=== PATIENT | female | born 1940 | race Caucasian/White ===

== ENCOUNTER 2017-03-03 20:52 | Emergency (ER) | payer MEDICARE, BC ==
--- NOTE | 2017-03-03 21:42 | EDM.PDOC ---
ED HPI GENERAL MEDICAL PROBLEM - General Chief Complaint: Abdominal Pain Stated Complaint: [facility] Time Seen by Provider: 03/03/17 21:01 Source of Information: Reports: Patient History Limitations: Reports: No Limitations - History of Present Illness INITIAL COMMENTS - FREE TEXT/NARRATIVE: This is a 77-year-old female. On Monday she was in [place] and had an upper endoscopy and 2 polyps were removed from her stomach by Dr. Hagan. He states she was feeling fine when she went home and she was doing well with good energy. Today however this afternoon she started feeling weak with decreased energy. She went to the bathroom this evening and while she was there she passed out and could not get back up. Today she had 2 black-looking stools and stool in the bathroom when she passed out had maroon blood. She also vomited one time in the bathroom after she passed out and there was a small flecks of some dark blood in the vomitus. She says she just has no energy and no strength. She denies any particular abdominal pain and no other acute symptoms. No fever no chills no cough no congestion. Treatments MANAGER MAIL: Reports: IV/IO, Other Medication(s), See EMS Report Other Treatments MANAGER MAIL: NS - Related Data Allergies Allergy/AdvReac Type Severity Reaction Status Date / Time Dairy Products Allergy Nausea and Verified 11/12/15 13:18 Vomiting lisinopril Allergy Cannot Verified 03/03/17 20:59 Remember Penicillins Allergy Hives Verified 11/12/15 13:18 Home Meds: Home Meds Ca Carbonate/Vitamin D3/Vit K [Calcium + D Soft Chewable Tab] 1 each PO DAILY [History] Folic Acid 1 mg PO DAILY 01/20/15 [History] Hydroxychloroquine [Plaquenil] 200 mg PO DAILY 01/20/15 [History] LORazepam 0.5 mg PO BID PRN 01/20/15 [History] Losartan [Cozaar] 25 mg PO DAILY 01/20/15 [History] Methotrexate 2.5 mg PO WEEKLY 01/20/15 [History] Metoprolol Succinate [Toprol XL] 25 mg PO BEDTIME 01/20/15 [History] Multivitamin [Multi-Vitamin Daily] 500 mg PO DAILYBH 01/20/15 [History] Omeprazole 40 mg PO DAILY 01/20/15 [History] Vitamin B Complex [B Complex] 1 each PO DAILY 01/20/15 [History] Apixaban [Eliquis] 5 mg PO BID 03/04/17 [History] Aspirin [Ecotrin] 81 mg PO DAILY 03/04/17 [History] Bismuth Subsalicylate [Pepto-Bismol] 15 ml PO DAILY PRN 03/04/17 [History] Lactobacillus Acidophilus [Probiotic] 1 cap PO DAILY 03/04/17 [History] Magnesiumzinc. 1 tab PO ASDIRECTED 03/04/17 [History] Nitroglycerin [Nitrostat] 0.4 mg SL ASDIRECTED PRN 03/04/17 [History] Simvastatin [Zocor] 20 mg PO BEDTIME 03/04/17 [History] Ubidecarenone [Coq-10] 200 mg PO DAILY 03/04/17 [History] Past Medical History HEENT History: Reports: Cataract, Impaired Vision Other HEENT History: wears glasses Cardiovascular History: Reports: Afib, Hypertension Respiratory History: Reports: Sleep Apnea Gastrointestinal History: Reports: Diverticulosis, GERD, [employer] History: Reports: Other OB/BYN History: OOVECTOMY Musculoskeletal History: Reports: RA Psychiatric History: Reports: Anxiety Oncologic (Cancer) History: Reports: Breast Other Dermatologic History: R MASECTOMY - Infectious Disease History Infectious Disease History: Reports: Chicken Pox - Past Surgical History HEENT Surgical History: Reports: Other (See Below) Cardiovascular Surgical History: Reports: Cardiac Ablation GI Surgical History: Reports: Appendectomy, Colonoscopy, EGD Female Surgical History: Reports: Hysterectomy Oncologic Surgical History: Reports: Mastectomy Social & Family History - Family History Family Medical History: Noncontributory - Tobacco Use Smoking Status *Q: Never Smoker Second Hand Smoke Exposure: No - Caffeine Use Caffeine Use: Reports: Tea - Recreational Drug Use Recreational Drug Use: No - Living Situation & Occupation Living situation: Reports: , with Spouse Occupation: Retired ED ROS GENERAL - Review of Systems Review Of Systems: See Below Constitutional: Reports: Weakness, Fatigue. Denies: Fever, Chills HEENT: Reports: No Symptoms Respiratory: Reports: No Symptoms Cardiovascular: Reports: No Symptoms Endocrine: Reports: No Symptoms GI/Abdominal: Reports: No Symptoms : Reports: No Symptoms Musculoskeletal: Reports: No Symptoms Skin: Reports: Change in Color Neurological: Reports: Syncope Psychiatric: Reports: No Symptoms Hematologic/Lymphatic: Reports: Anemia Immunologic: Reports: No Symptoms ED EXAM, GI/ABD - Physical Exam Exam: See Below Exam Limited By: No Limitations General Appearance: Alert, WD/WN, No Apparent Distress Eyes: Bilateral: Normal Appearance Ears: Normal External Exam Nose: Normal Inspection Throat/Mouth: Other (Patient is pale, her lip appears to be about the same shade as the skin of her chin, there is no obvious blood in the oropharynx area) Head: Atraumatic, Normocephalic Neck: Supple, Non-Tender, Full Range of Motion Respiratory/Chest: No Respiratory Distress, Lungs Clear, Normal Breath Sounds Cardiovascular: Regular Rate, Rhythm, No Murmur GI/Abdominal Exam: Soft, Non-Tender, Other (Palpation of the upper abdomen reveals no tenderness no lower abdominal tenderness or quadrant tenderness on palpation, bowel sounds are quiet) Rectal (Female) Exam: Other (stool is guaiac positive) Extremities: Normal Inspection, Normal Range of Motion, Non-Tender Neurological: Alert, Oriented Psychiatric: Normal Affect, Normal Mood Skin Exam: Warm, Dry. No: Diaphoretic Course - Vital Signs Last Recorded V/S: Last Vital Signs Temp 98.6 F 03/04/17 02:09 Pulse 79 03/04/17 02:09 Resp 17 03/04/17 02:09 BP 112/54 L 03/04/17 02:09 Pulse Ox 100 03/04/17 02:09 - Orders/Labs/Meds Orders: Active Orders 24 hr Category Date Time Status PATIENT RETYPE [BBK] Stat Lab 03/03/17 21:48 Results RED BLOOD CELLS APH1 LR [BBK] Stat Lab 03/03/17 21:48 Results RED BLOOD CELLS LP [BBK] Stat Lab 03/03/17 21:48 Results TYPE AND SCREEN [BBK] Stat Lab 03/03/17 21:48 Results Sodium Chloride 0.9% [Normal Saline] 1,000 ml Med 03/03/17 23:10 Active IV ONETIME Transfuse PRBC [Transfuse Red Blood Cells] [COMM] Stat Oth 03/03/17 22:52 Ordered Medication Orders Sodium Chloride (Normal Saline) 1,000 mls @ 75 mls/hr IV ONETIME ONE Stop: 03/04/17 12:29 Last Admin: 03/03/17 23:42 Dose: 75 mls/hr Labs: Laboratory Tests 03/03/17 03/03/17 03/03/17 Range/Units 21:48 21:48 21:48 WBC 9.88 (3.98-10.04) K/mm3 RBC 2.49 L (3.98-5.22) M/mm3 Hgb 7.7 L (11.2-15.7) gm/L Hct 23.2 L (34.1-44.9) % MCV 93.2 (79.4-94.8) fl MCH 30.9 (25.6-32.2) pg MCHC 33.2 (32.2-35.5) g/dl RDW Std Deviation 48.5 H (36.4-46.3) fL Plt Count 213 (182-369) K/mm3 MPV 9.8 (9.4-12.3) fl Neut % (Auto) 78.6 H (34.0-71.1) % Lymph % (Auto) 7.6 L (19.3-51.7) % [place] % (Auto) 13.0 H (4.7-12.5) % Eos % (Auto) 0.4 L (0.7-5.8) Baso % (Auto) 0.2 (0.1-1.2) % Neut # (Auto) 7.77 H (1.56-6.13) K/mm3 Lymph # (Auto) 0.75 L (1.18-3.74) K/mm3 [place] # (Auto) 1.28 H (0.24-0.36) K/mm3 Eos # (Auto) 0.04 (0.04-0.36) K/mm3 Baso # (Auto) 0.02 (0.01-0.08) K/mm3 Manual Slide Review Abnormal smear PT 12.2 (8.0-13.0) SECONDS INR 1.11 Sodium 139 (136-145) mEq/L Potassium 4.9 (3.5-5.1) mEq/L Chloride 109 H (98-107) mEq/L Carbon Dioxide 23 (21-32) mEq/L Anion Gap 11.9 (5-15) BUN 48 H (7-18) mg/dL Creatinine 1.4 H (0.55-1.02) mg/dL Est Cr Clr Drug Dosing TNP Estimated GFR (MDRD) 37 (>60) mL/min BUN/Creatinine Ratio 34.3 H (14-18) Glucose 104 (83-115) mg/dL Calcium 9.1 (8.5-10.1) mg/dL Total Bilirubin 0.3 (0.2-1.0) mg/dL AST 20 (15-37) U/L ALT 21 (14-59) U/L Alkaline Phosphatase 33 L (46-116) U/L Total Protein 5.4 L (6.4-8.2) g/dl Albumin 2.6 L (3.4-5.0) g/dl Globulin 2.8 gm/dL Albumin/Globulin Ratio 0.9 L (1-2) Blood Type Gel Antibody Screen Crossmatch 03/03/17 Range/Units 21:48 WBC (3.98-10.04) K/mm3 RBC (3.98-5.22) M/mm3 Hgb (11.2-15.7) gm/L Hct (34.1-44.9) % MCV (79.4-94.8) fl MCH (25.6-32.2) pg MCHC (32.2-35.5) g/dl RDW Std Deviation (36.4-46.3) fL Plt Count (182-369) K/mm3 MPV (9.4-12.3) fl Neut % (Auto) (34.0-71.1) % Lymph % (Auto) (19.3-51.7) % [place] % (Auto) (4.7-12.5) % Eos % (Auto) (0.7-5.8) Baso % (Auto) (0.1-1.2) % Neut # (Auto) (1.56-6.13) K/mm3 Lymph # (Auto) (1.18-3.74) K/mm3 [place] # (Auto) (0.24-0.36) K/mm3 Eos # (Auto) (0.04-0.36) K/mm3 Baso # (Auto) (0.01-0.08) K/mm3 Manual Slide Review PT (8.0-13.0) SECONDS INR Sodium (136-145) mEq/L Potassium (3.5-5.1) mEq/L Chloride (98-107) mEq/L Carbon Dioxide (21-32) mEq/L Anion Gap (5-15) BUN (7-18) mg/dL Creatinine (0.55-1.02) mg/dL Est Cr Clr Drug Dosing Estimated GFR (MDRD) (>60) mL/min BUN/Creatinine Ratio (14-18) Glucose (83-115) mg/dL Calcium (8.5-10.1) mg/dL Total Bilirubin (0.2-1.0) mg/dL AST (15-37) U/L ALT (14-59) U/L Alkaline Phosphatase (46-116) U/L Total Protein (6.4-8.2) g/dl Albumin (3.4-5.0) g/dl Globulin gm/dL Albumin/Globulin Ratio (1-2) Blood Type A POSITIVE Gel Antibody Screen Negative Crossmatch See Detail Meds: Medications Generic Name Dose Route Start Last Admin Trade Name Freq PRN Reason Stop Dose Admin Sodium Chloride 1,000 mls @ 75 mls/hr 03/03/17 23:10 03/03/17 23:42 Normal Saline IV 03/04/17 12:29 75 mls/hr ONETIME ONE Administration Discontinued Medications Generic Name Dose Route Start Last Admin Trade Name Freq PRN Reason Stop Dose Admin Sodium Chloride 1,000 mls @ 500 mls/hr 03/03/17 21:50 03/03/17 21:57 Normal Saline IV 03/03/17 23:49 500 mls/hr ONETIME ONE Administration - Re-Assessments/Exams Free Text/Narrative Re-Assessment/Exam: 03/04/17 01:32 I spoke to the patient regarding her lab results. She has no upper GI bleed with acute anemia due to blood loss. I also spoke to at [facility] and he agrees to accept the patient in transport for further evaluation and treatment. However with a hemoglobin of 7.7 and still a systolic in the 90s we will transfuse her 1 unit of blood and then set up another unit to be given on the way down to [place]. She has been stable since she has been here with a most recent blood pressure of 106/54. Once the first unit of blood is transfused we will call an ambulance to transfer her down to [place]. 03/04/17 03:12 We have attempted to locate an [facility] ambulance to transport the patient to [place], we have called [facility] and [facility] and no one is available. Since her condition is tenuous and if she bleeds again there is no one here at this hospital that can scope her and stop the bleeding I have called the [place] flight crew to come and pick her up since I have no other alternative and I do not feel comfortable keeping her here due to the inability to treat her if she bleeds again. Departure - Departure Time of Disposition: 03:13 Disposition: DC/Tfer to [facility] 02 Condition: Fair Clinical Impression: Upper GI hemorrhage, Acute blood loss anemia - Discharge Information Referrals: Coretta Sharma MD [Primary Care Provider] - Forms: ED Department Discharge Additional Instructions: Dr. Mukherjee agrees to accept the patient in transport to [facility] for further evaluation and treatment. The patient did receive 1 unit of blood prior to transfer and the second unit was actually hung and is approximately jail done now since we are having a hard time finding a method to get her down to [place]. ED Communication - ED Communication Date/Time Date: 03/03/17 Time Called: 23:30 - Discussed Case With (1) Discussed Case With (1): Admitting Provider Person/s Notified (1): Dr. Mukherjee (Accepts the patient to [facility]) - My Orders Last 24 Hours: My Active Orders 03/03/17 21:48 PATIENT RETYPE [BBK] Stat RED BLOOD CELLS APH1 LR [BBK] Stat RED BLOOD CELLS LP [BBK] Stat TYPE AND SCREEN [BBK] Stat 03/03/17 22:52 Transfuse PRBC [Transfuse Red Blood Cells] [COMM] Stat 03/03/17 23:10 Sodium Chloride 0.9% [Normal Saline] 1,000 ml IV ONETIME - Assessment/Plan Last 24 Hours: My Active Orders 03/03/17 21:48 PATIENT RETYPE [BBK] Stat RED BLOOD CELLS APH1 LR [BBK] Stat RED BLOOD CELLS LP [BBK] Stat TYPE AND SCREEN [BBK] Stat 03/03/17 22:52 Transfuse PRBC [Transfuse Red Blood Cells] [COMM] Stat 03/03/17 23:10 Sodium Chloride 0.9% [Normal Saline] 1,000 ml IV ONETIME
[2017-03-03] MEDS ORDERED: Sodium Chloride 0.9% 1,000 ML IV ONE ×2 (21:50→23:10)
[2017-03-04 05:55] VITALS: BP 103/63
== END 2017-03-04 05:55 ==
LOC: JD.ED 20:52
DX: K92.2 Gastrointestinal hemorrhage, unspecified (principal); D62 Acute posthemorrhagic anemia; I10 Essential (primary) hypertension; I48.91 Unspecified atrial fibrillation; G47.30 Sleep apnea, unspecified; K21.9 Gastro-esophageal reflux disease without esophagitis; F41.9 Anxiety disorder, unspecified; Z85.3 Personal history of malignant neoplasm of breast; Z90.710 Acquired absence of both cervix and uterus; Z98.890 Other specified postprocedural states; Z90.11 Acquired absence of right breast and nipple; Z79.82 Long term (current) use of aspirin; Z79.899 Other long term (current) drug therapy; Z88.0 Allergy status to penicillin; Z88.8 Allergy status to other drugs, medicaments and biological substances; Z91.011 Allergy to milk products
CPT/HCPCS: 36415; 36430; 80053; 85025; 85610; 86850; 86900; 86901; 86922; 96360; 96361; 99285; J7040; P9016

== ENCOUNTER 2017-03-07 10:11 | Emergency (ER) | payer MEDICARE, BC ==
[2017-03-07] MEDS ORDERED: Diltiazem 25 MG/5 ML SDV IVPUSH ONE (10:31)
--- NOTE | 2017-03-07 10:36 | EDM.PDOC ---
ED HPI GENERAL MEDICAL PROBLEM - General Chief Complaint: Cardiovascular Problem Stated Complaint: RAPID HEART RATE Time Seen by Provider: 03/07/17 10:24 Source of Information: Reports: Patient, Family (spouse) History Limitations: Reports: No Limitations - History of Present Illness INITIAL COMMENTS - FREE TEXT/NARRATIVE: 77-year-old female presents to the ED with acute onset of palpitations about 0700 hrs. this morning. She has a history of intermittent atrial fibrillation. She is on Eliquis and metoprolol 25 mg extended release daily. She did take her medications this morning. She states her heart has not acted out for the better part of a year. She's been ill lately with anemia occurring after lower GI bleed after polypectomy during colonoscopy. She required 2 units of packed cells and remains anemic. At present she is tolerating the tachyarrhythmia at 1 55/m well with no central chest pain. Slight dizziness when she was standing and walking. No shortness of breath. Onset: Today Onset Date: 03/07/17 Onset Time: 07:00 Duration: Hour(s):, Constant Location: Reports: Chest (Aware of palpitations in her chest.) Quality: Reports: Other. Denies: Pressure Severity: Moderate (Dizziness) Improves with: Reports: None (Valsalva maneuver did not work.) Worsens with: Reports: Movement Associated Symptoms: Reports: Malaise (Has been feeling quite weak and fatigued since GI blood loss.), Weakness (Generalized). 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 (see below) (Did take her normal medications this morning.) - Related Data Allergies Allergy/AdvReac Type Severity Reaction Status Date / Time Dairy Products Allergy Nausea and Verified 03/07/17 10:28 Vomiting lisinopril Allergy Cannot Verified 03/07/17 10:28 Remember Penicillins Allergy Hives Verified 03/07/17 10:28 Home Meds: Home Meds Ca Carbonate/Vitamin D3/Vit K [Calcium + D Soft Chewable Tab] 1 each PO DAILY [History] Folic Acid 1 mg PO DAILY 01/20/15 [History] Hydroxychloroquine [Plaquenil] 200 mg PO DAILY 01/20/15 [History] LORazepam 0.5 mg PO BID PRN 01/20/15 [History] Losartan [Cozaar] 25 mg PO DAILY 01/20/15 [History] Methotrexate 2.5 mg PO WEEKLY 01/20/15 [History] Metoprolol Succinate [Toprol XL] 25 mg PO BEDTIME 01/20/15 [History] Multivitamin [Multi-Vitamin Daily] 500 mg PO DAILYBH 01/20/15 [History] Omeprazole 40 mg PO DAILY 01/20/15 [History] Vitamin B Complex [B Complex] 1 each PO DAILY 01/20/15 [History] Apixaban [Eliquis] 5 mg PO BID 03/04/17 [History] Aspirin [Ecotrin] 81 mg PO DAILY 03/04/17 [History] Bismuth Subsalicylate [Pepto-Bismol] 15 ml PO DAILY PRN 03/04/17 [History] Lactobacillus Acidophilus [Probiotic] 1 cap PO DAILY 03/04/17 [History] Magnesiumzinc. 1 tab PO ASDIRECTED 03/04/17 [History] Nitroglycerin [Nitrostat] 0.4 mg SL ASDIRECTED PRN 03/04/17 [History] Simvastatin [Zocor] 20 mg PO BEDTIME 03/04/17 [History] Ubidecarenone [Coq-10] 200 mg PO DAILY 03/04/17 [History] Past Medical History HEENT History: Reports: Cataract, Impaired Vision Other HEENT History: wears glasses Cardiovascular History: Reports: Afib (Intermittent atrial fib and is on Eliquis for this.), Hypertension Respiratory History: Reports: Sleep Apnea Gastrointestinal History: Reports: Diverticulosis, GERD, PUD, Other (See Below) (Recent colonoscopy with 2 polyps resected. 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 Has been doing so since 1998 with good control of her disease process) Psychiatric History: Reports: Anxiety Oncologic (Cancer) History: Reports: Breast Other Dermatologic History: R MASECTOMY - Infectious Disease History Infectious Disease History: Reports: Chicken Pox - Past Surgical History HEENT Surgical History: Reports: Other (See Below) Cardiovascular Surgical History: Reports: Cardiac Ablation GI Surgical History: Reports: Appendectomy, Colonoscopy, EGD Female Surgical History: Reports: Hysterectomy Oncologic Surgical History: Reports: Mastectomy Social & Family History - Family History Family Medical History: Noncontributory - Tobacco Use Smoking Status *Q: Never Smoker Second Hand Smoke Exposure: No - Caffeine Use Caffeine Use: Reports: Tea - Recreational Drug Use Recreational Drug Use: No - Living Situation & Occupation Living situation: Reports: , with Spouse Occupation: Retired ED ROS GENERAL - Review of Systems Review Of Systems: See Below Constitutional: Reports: Malaise, Weakness, Fatigue, Decreased Appetite. Denies : Fever, Chills, Weight Loss (Since current illness with blood loss.) HEENT: Reports: No Symptoms Respiratory: Denies: Shortness of Breath, Wheezing, Pleuritic Chest Pain, Cough , Sputum, Hemoptysis Cardiovascular: Reports: Blood Pressure Problem, Dyspnea on Exertion (The last week.), Lightheadedness (Mild this morning). Denies: Chest Pain, Claudication, Edema, Orthopnea (Usually runs a bit high) Endocrine: Reports: Fatigue GI/Abdominal: Reports: Other (Recently had 2 polyps resected by colonoscopy with a postoperative GI bleed 2 days later requiring cauterization of the area. It did require 2 units of packed cells. Hemoglobin was down to 7). Denies: Abdominal Pain : Reports: Incontinence (Mild stress and urge component.) Musculoskeletal: Reports: Joint Pain (Knees hips and low back at times) Skin: Reports: Pallor (Remains anemic.) Neurological: Reports: Dizziness (Little lightheaded dizzy this morning.) Psychiatric: Reports: Anxiety ED EXAM, GENERAL - Physical Exam Exam: See Below Exam Limited By: No Limitations General Appearance: Alert, WD/WN, Other (Does appear quite pallid. She is not that anxious in regards to the palpitations.) Eye Exam: Right Eye: Other (Both blood for margins are showing signs of anemia. Hemoglobin) Throat/Mouth: Normal Inspection, Normal Lips, Normal Oropharynx Head: Atraumatic, Normocephalic Neck: Normal Inspection, Supple, Non-Tender, Full Range of Motion. No: Lymphadenopathy (L), Lymphadenopathy (R) Respiratory/Chest: No Respiratory Distress, Lungs Clear, Normal Breath Sounds, No Accessory Muscle Use Cardiovascular: No Gallop, No Murmur, No Rub, Tachycardia (Regular tachycardia no complex on the monitor at 1 56/m.). No: Normal Peripheral Pulses, Regular Rate, Rhythm, No Edema Peripheral Pulses: 1+: Posterior Tibial (L) (Pulses are weak to her feet.), Posterior Tibial (R), Dorsalis Pedis (L), Dorsalis Pedis (R) GI/Abdominal: Normal Bowel Sounds, Soft, Non-Tender, No Organomegaly Back Exam: Normal Inspection, Full Range of Motion. No: CVA Tenderness (L), CVA Tenderness (R) Extremities: Normal Inspection, Pedal Edema, Other (Is showing evidence of rheumatoid arthritis affecting her MCP joints in her hands. No active synovitis identified.) Neurological: Alert, Oriented (+1 pitting edema both lower extremities), CN II- XII Intact, Normal Cognition Psychiatric: Normal Affect, Normal Mood Skin Exam: Warm, Dry, Intact, Normal Color, No Rash EKG INTERPRETATION EKG Date: 03/07/17 Time: 10:20 Rhythm: Other (Narrow complex tachycardia SVT. Simply junctional possibly atrial fibrillation) Rate (Beats/Min): 155 [place]: LAD-Left [place] Deviation (Left axis deviation of -40.) P-Wave: Absent QRS: RBBB (Incomplete right bundle branch block pattern) ST-T: Depressed (Depressed in leads 1 and aVL) QT: Normal Course - Vital Signs Last Recorded V/S: Last Vital Signs Temp 36.6 C 03/07/17 10:11 Pulse 156 H 03/07/17 10:11 Resp 20 03/07/17 10:11 BP 117/66 03/07/17 10:11 Pulse Ox 100 03/07/17 10:11 - Orders/Labs/Meds Orders: Active Orders 24 hr Category Date Time Status EKG Documentation Completion [RC] STAT Care 03/07/17 10:33 Active EKG Documentation Completion [RC] STAT Care 03/07/17 11:20 Active TSH [CHEM] Stat Lab 03/07/17 12:12 Ordered Sodium Chloride 0.9% [Normal Saline] 1,000 ml Med 03/07/17 10:45 Active IV ASDIRECTED Medication Orders Sodium Chloride (Normal Saline) 1,000 mls @ 100 mls/hr IV ASDIRECTED RACH Last Admin: 03/07/17 10:49 Dose: 100 mls/hr Labs: Laboratory Tests 03/07/17 03/07/17 03/07/17 Range/Units 10:25 10:25 10:25 WBC 7.21 (3.98-10.04) K/mm3 RBC 2.95 L (3.98-5.22) M/mm3 Hgb 8.9 L (11.2-15.7) gm/L Hct 27.0 L (34.1-44.9) % MCV 91.5 (79.4-94.8) fl MCH 30.2 (25.6-32.2) pg MCHC 33.0 (32.2-35.5) g/dl RDW Std Deviation 49.4 H (36.4-46.3) fL Plt Count 234 (182-369) K/mm3 MPV 10.9 (9.4-12.3) fl Neutrophils % (Manual) 74 H (40-60) % Band Neutrophils % 2 (0-10) % Lymphocytes % (Manual) 20 (20-40) % Atypical Lymphs % 0 % Monocytes % (Manual) 3 (2-10) % Eosinophils % (Manual) 1 (0.7-5.8) % Basophils % (Manual) 0 L (0.1-1.2) Platelet Estimate Adequate Polychromasia 1+ slight Poikilocytosis 1+ slight Anisocytosis 1+ slight Ovalocytes Few RBC Morph Comment Not Reportable PT 11.3 (8.0-13.0) SECONDS INR 1.03 Sodium 141 (136-145) mEq/L Potassium 3.9 (3.5-5.1) mEq/L Chloride 109 H (98-107) mEq/L Carbon Dioxide 24 (21-32) mEq/L Anion Gap 11.9 (5-15) BUN 18 (7-18) mg/dL Creatinine 1.3 H (0.55-1.02) mg/dL Est Cr Clr Drug Dosing 35.80 mL/min Estimated GFR (MDRD) 40 (>60) mL/min BUN/Creatinine Ratio 13.8 L (14-18) Glucose 130 H (83-115) mg/dL Calcium 10.2 H (8.5-10.1) mg/dL Magnesium 1.8 (1.8-2.4) mg/dl Total Bilirubin 0.4 (0.2-1.0) mg/dL AST 29 (15-37) U/L ALT 26 (14-59) U/L Alkaline Phosphatase 40 L (46-116) U/L CK-MB (CK-2) 2.6 (0-3.6) ng/ml Troponin I 0.058 H* (0.00-0.056) ng/mL C-Reactive Protein 1.7 H* (<1.0) mg/dL NT-Pro-B Natriuret Pep 909 H (0-450) pg/mL Total Protein 6.5 (6.4-8.2) g/dl Albumin 2.9 L (3.4-5.0) g/dl Globulin 3.6 gm/dL Albumin/Globulin Ratio 0.8 L (1-2) Meds: Medications Generic Name Dose Route Start Last Admin Trade Name Freq PRN Reason Stop Dose Admin Sodium Chloride 1,000 mls @ 100 mls/hr 03/07/17 10:45 03/07/17 10:49 Normal Saline IV 100 mls/hr ASDIRECTED RACH Administration Discontinued Medications Generic Name Dose Route Start Last Admin Trade Name Freq PRN Reason Stop Dose Admin Diltiazem HCl 10 mg 03/07/17 10:31 03/07/17 10:48 Diltiazem IVPUSH 03/07/17 10:32 10 mg ONETIME ONE Administration Diltiazem HCl 125 mg/ Sodium 125 mls @ 5 mls/hr 03/07/17 10:45 Chloride IV TITRATE RACH 5 MG/HR - Radiology Interpretation Free Text/Narrative:: 77-year-old female presents to the ED with recognized on sudden onset of palpitations about 0700 hrs. this morning while she was sitting down to 8 breakfast. She has a history of intermittent atrial fibrillation. For this reason she is on metoprolol and Eliquis. Is been not acting up for a lengthy period of time. She's been recently ill with development of significant anemia after lower GI blood loss following polypectomy during colonoscopy. She did receive 2 units of packed cells because of hemoglobin of 7. She of course remains anemic. She is fatigued and suffering Polina's because of this. ECG at this time as a narrow complex tachycardia with incomplete right bundle branch block pattern at 1 55/m. She is tolerating this well with no chest pain she slight dizziness and no shortness of breath. Plan try to sign 10 mg IV bolus then 5 mg drip per hour. Routine labs to include serum magnesium level. No baseline blood pressure was 117 systolic. - Re-Assessments/Exams Free Text/Narrative Re-Assessment/Exam: 03/07/17 11:10 heart rate responded well to the 10 mg IV bolus of Cardizem. Currently heart rate is 89 and is converted her back to sinus rhythm. Blood pressures a little low at 90/52. The drip will therefore be canceled. 03/07/17 12:12 is remained in sinus rhythm in the 80s. Blood pressure remained a bit on the low side it is currently 97/57. She remains pallid. Labs revealed a hemoglobin of 8.9 total white count is 7.21 with 74% neutrophils and 2% band cells. Hematocrit was 27.0 platelets normal 2 and 34,000. Glucose 1:30. Troponin was 0.058 up her limits of normal CK-MB fraction 2.6. BNP is elevated at 909. This suggests [place] backup of fluid in her lungs from the atrial fibrillation with rapid rate alleviate anemia complicating this. I will not treat this at this time as her blood pressure is too low. I suspect she'll play ketinTarvoup over the next day or so. Coags were otherwise normal. She will be discharged to home. She is to rest today. No changes to medications be made at this time. Departure - Departure Time of Disposition: 12:13 Disposition: Home, Self-Care 01 Preliminary Cause of *Q: Sepsis & Multi System Organ Failure Reason for Transfer *Q: Primary PCI Indicated Condition: Fair Clinical Impression: Tachyarrhythmia, SVT (supraventricular tachycardia) Anemia Qualifiers: Anemia type: other cause Referrals: Coretta Sharma MD [Primary Care Provider] - Forms: ED Department Discharge Additional Instructions: Evaluation the emergency room this morning in regards to sudden onset of rapid heart rate. When he arrived here your heart revealed a narrow complex tachycardia. With a rate as high as 155/min. You converted back to regular sinus rhythm after one dose of Cardizem 10 mg given intravenously. The lab tests reveal you are remained anemic with hemoglobin of 8.9. You are tired start iron supplementation to build up your blood for the next 3 weeks. Normal hemoglobin is around 14. The only other thing that was elevated was there is a little bit extra fluid buildup in your lungs probably from a combination of rapid heart rate this morning and the anemia. Should fix itself as the anemia improves and her heart rate plays catch up. Home to rest today. No changes to be made to medications at this time - My Orders Last 24 Hours: My Active Orders 03/07/17 10:33 EKG Documentation Completion [RC] STAT 03/07/17 10:45 Sodium Chloride 0.9% [Normal Saline] 1,000 ml IV ASDIRECTED 03/07/17 11:20 EKG Documentation Completion [RC] STAT 03/07/17 12:12 TSH [CHEM] Stat - Assessment/Plan Last 24 Hours: My Active Orders 03/07/17 10:33 EKG Documentation Completion [RC] STAT 03/07/17 10:45 Sodium Chloride 0.9% [Normal Saline] 1,000 ml IV ASDIRECTED 03/07/17 11:20 EKG Documentation Completion [RC] STAT 03/07/17 12:12 TSH [CHEM] Stat
[2017-03-07] MEDS ORDERED: Sodium Chloride 0.9% 1,000 ML IV SCH (10:45)
[2017-03-07] MEDS ORDERED: Diltiazem 125 MG in Sodium Chloride 0.9% 100 ML IV SCH (10:45)
--- NOTE | 2017-03-07 11:38 | CR ---
Chest: Portable view of the chest was obtained. Comparison: No prior chest x-ray. Heart size is slightly prominent but accentuated from portable technique. Mild tortuosity of the thoracic aorta is seen. Scoliosis is present within the spine. Lungs are clear with no acute infiltrates. Impression: 1. Incidental findings as noted above. Nothing acute is identified on portable chest x-ray. Diagnostic code #2
[2017-03-07 13:13] VITALS: BP 101/59
== END 2017-03-07 13:05 | disposition home or self-care (01) ==
LOC: JD.ED 10:11
DX: I47.1 Supraventricular tachycardia (principal); D64.89 Other specified anemias; G47.30 Sleep apnea, unspecified; K21.9 Gastro-esophageal reflux disease without esophagitis; M06.9 Rheumatoid arthritis, unspecified; F41.9 Anxiety disorder, unspecified; Z85.3 Personal history of malignant neoplasm of breast; Z90.710 Acquired absence of both cervix and uterus; Z90.49 Acquired absence of other specified parts of digestive tract; Z79.82 Long term (current) use of aspirin; Z79.899 Other long term (current) drug therapy; Z88.0 Allergy status to penicillin; Z88.8 Allergy status to other drugs, medicaments and biological substances; Z91.011 Allergy to milk products
CPT/HCPCS: 36415; 71010; 80053; 82553; 83735; 83880; 84443; 84484; 85025; 85610; 86140; 93005; 96361; 96374; 99285; J3490; J7040

== ENCOUNTER 2017-04-22 08:13 | Emergency (ER) | payer MEDICARE, BC ==
--- NOTE | 2017-04-22 08:35 | EDM.PDOC ---
ED HPI GENERAL MEDICAL PROBLEM - General Chief Complaint: ENT Problem Stated Complaint: NOSEBLEED Time Seen by Provider: 04/22/17 08:25 - History of Present Illness INITIAL COMMENTS - FREE TEXT/NARRATIVE: 77-year-old female presents emergency room with a nosebleed. This started about 30 minutes prior to arrival she has tried direct pressure with no relief. She has not had problems swallowing blood it seems to be coming from the right nose. Patient is on eloquis was for paroxysmal atrial fibrillation. Patient has had bleeding problems from her stomach after having a EGD with biopsy this last month she was recently restarted on the Eloquis this last month. The patient has still been anemic after her GI bleed according to the patient her hemoglobin last week was 10.4. Patient has not had any chest pain or difficulty breathing. - Related Data Allergies Allergy/AdvReac Type Severity Reaction Status Date / Time Dairy Products Allergy Nausea and Verified 04/22/17 08:29 Vomiting lisinopril Allergy Cannot Verified 04/22/17 08:29 Remember Penicillins Allergy Hives Verified 04/22/17 08:29 Home Meds: Home Meds Ca Carbonate/Vitamin D3/Vit K [Calcium + D Soft Chewable Tab] 1,000 - 1,500 each PO DAILY 01/20/15 [History] Folic Acid 1 mg PO DAILY 01/20/15 [History] Hydroxychloroquine [Plaquenil] 200 mg PO DAILY 01/20/15 [History] LORazepam 0.5 mg PO BID PRN 01/20/15 [History] Losartan [Cozaar] 25 mg PO DAILY 01/20/15 [History] Metoprolol Succinate [Toprol XL] 25 mg PO BID 01/20/15 [History] Multivitamin [Multi-Vitamin Daily] 500 mg PO DAILY 01/20/15 [History] Omeprazole 20 mg PO BID 01/20/15 [History] Vitamin B Complex [B Complex] 1 each PO DAILY 01/20/15 [History] Apixaban [Eliquis] 5 mg PO BID 03/04/17 [History] Aspirin [Ecotrin] 81 mg PO DAILY 03/04/17 [History] Bismuth Subsalicylate [Pepto-Bismol] 15 ml PO DAILY PRN 03/04/17 [History] Lactobacillus Acidophilus [Probiotic] 1 cap PO DAILY 03/04/17 [History] Magnesiumzinc. 1 tab PO ASDIRECTED 03/04/17 [History] Nitroglycerin [Nitrostat] 0.4 mg SL ASDIRECTED PRN 03/04/17 [History] Simvastatin [Zocor] 20 mg PO BEDTIME 03/04/17 [History] Ubidecarenone [Coq-10] 200 mg PO DAILY 03/04/17 [History] Ferrous Sulfate 325 mg PO DAILY 04/22/17 [History] Methotrexate Sodium/PF [Methotrexate 50 mg/2 ml Vial] 15 mg SQ TU 04/22/17 [ History] Past Medical History HEENT History: Reports: Cataract, Impaired Vision Other HEENT History: wears glasses Cardiovascular History: Reports: Afib (Intermittent atrial fib and is on Eliquis for this.), Hypertension Respiratory History: Reports: Sleep Apnea Gastrointestinal History: Reports: Diverticulosis, GERD, PUD, Other (See Below) (Recent colonoscopy with 2 polyps resected. 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 Has been doing so since 1998 with good control of her disease process) Psychiatric History: Reports: Anxiety Hematologic History: Reports: Blood Transfusion(s) Oncologic (Cancer) History: Reports: Breast Other Dermatologic History: R MASECTOMY - Infectious Disease History Infectious Disease History: Reports: Chicken Pox - Past Surgical History HEENT Surgical History: Reports: Other (See Below) Cardiovascular Surgical History: Reports: Cardiac Ablation GI Surgical History: Reports: Appendectomy, Colonoscopy, EGD Female Surgical History: Reports: Hysterectomy Oncologic Surgical History: Reports: Mastectomy Social & Family History - Family History Family Medical History: Noncontributory - Tobacco Use Smoking Status *Q: Never Smoker Second Hand Smoke Exposure: No - Caffeine Use Caffeine Use: Reports: Tea - Recreational Drug Use Recreational Drug Use: No - Living Situation & Occupation Living situation: Reports: , with Spouse Occupation: Retired ED ROS ENT - Review of Systems Review Of Systems: See Below Constitutional: Reports: No Symptoms. Denies: Fever, Chills HEENT: Reports: Nosebleed. Denies: Rhinitis, Sinus Problem Respiratory: Reports: No Symptoms Cardiovascular: Reports: No Symptoms GI/Abdominal: Reports: No Symptoms ED EXAM, ENT - Physical Exam Exam: See Below Exam Limited By: No Limitations General Appearance: Alert, No Apparent Distress Nose: Active Bleeding (From the right naris bleeding site cannot be adequately visualized using a nasal speculum and headlamp). No: No Blood, Nasal Swelling, Nasal Tenderness Mouth/Throat: Normal Oropharynx (Small amount of blood in the posterior pharynx not actively bleeding patient gargled and cleared most of this out) Head: Atraumatic, Normocephalic Neck: Normal Inspection, Supple, Non-Tender, Full Range of Motion. No: Lymphadenopathy (L), Lymphadenopathy (R) Respiratory/Chest: No Respiratory Distress, Lungs Clear, Normal Breath Sounds Cardiovascular: Regular Rate, Rhythm, No Murmur ED ENT PROCEDURES - Epistaxis Procedure Indication: Epistaxis, Uncontrolled Recent anticoagulants/antiplatlets: Yes Uncontrolled HTN: No Recent septal/nasal surgery: No Site of bleeding: Right Nare (Despite vigorous attempts to isolate the bleeding site, it could not be identified) Clearing of clots: Patient Blew Nose, Suction Anterior Packing: Other (Rapid Rhino 5.5 was placed without difficulty [address] patient is tolerating this bleeding substantially better) Complications: No Course - Vital Signs Last Recorded V/S: Last Vital Signs Temp 36.3 C 04/22/17 08:15 Pulse 80 04/22/17 08:15 Resp 18 04/22/17 08:15 BP 148/74 H 04/22/17 08:15 Pulse Ox 99 04/22/17 08:15 - Orders/Labs/Meds Labs: Laboratory Tests 04/22/17 04/22/17 Range/Units 08:56 08:56 WBC 5.13 (3.98-10.04) K/mm3 RBC 3.83 L (3.98-5.22) M/mm3 Hgb 11.2 (11.2-15.7) gm/L Hct 34.8 (34.1-44.9) % MCV 90.9 (79.4-94.8) fl MCH 29.2 (25.6-32.2) pg MCHC 32.2 (32.2-35.5) g/dl RDW Std Deviation 51.3 H (36.4-46.3) fL Plt Count 289 (182-369) K/mm3 MPV 9.9 (9.4-12.3) fl Neutrophils % (Manual) 81 H (40-60) % Band Neutrophils % 0 (0-10) % Lymphocytes % (Manual) 18 L (20-40) % Atypical Lymphs % 0 % Monocytes % (Manual) 1 L (2-10) % Eosinophils % (Manual) 0 L (0.7-5.8) % Basophils % (Manual) 0 L (0.1-1.2) Platelet Estimate Adequate RBC Morph Comment Normal PT 11.4 (8.0-13.0) SECONDS INR 1.04 APTT 30 (22-36) SECONDS - Re-Assessments/Exams Free Text/Narrative Re-Assessment/Exam: 04/22/17 09:00 Patient doing much better at this point bleeding appears to stopped. Awaiting on CBC and coagulation studies. 04/22/17 09:14 Patient doing well at this time no active bleeding oropharynx clear. 04/22/17 09:57 Patient continues to do well no bleeding from her nose she has a little bit of pinkish watery drainage from the right. No drainage down the posterior pharynx. Her hemoglobin is 11.2 this is up a little bit from last week and coagulation studies normal. At this point we'll discharge home continue same routine medications. Departure - Departure Time of Disposition: 09:58 Disposition: Home, Self-Care 01 Clinical Impression: Anterior epistaxis - Discharge Information Referrals: Coretta Sharma MD [Primary Care Provider] - Forms: ED Department Discharge Additional Instructions: Return to the emergency room with any questions problems or worsening symptoms. Return with worsening or recurrent bleeding. Follow-up in the clinic on Monday or for recheck. Anticipate packing removal at that point. Use KY jelly under your nose as discussed every few hours while awake. Continue this for 1 week after the packing is removed. Continue your routine medications at this point. If bleeding continues to be a problem we may need to consider holding the Eloquis.
[2017-04-22 11:07] VITALS: BP 135/72
== END 2017-04-22 10:43 | disposition home or self-care (01) ==
LOC: JD.ED 08:13
DX: R04.0 Epistaxis (principal); I48.0 Paroxysmal atrial fibrillation; K21.9 Gastro-esophageal reflux disease without esophagitis; F41.9 Anxiety disorder, unspecified; Z79.82 Long term (current) use of aspirin; Z79.899 Other long term (current) drug therapy; Z88.0 Allergy status to penicillin; Z91.011 Allergy to milk products; Z88.8 Allergy status to other drugs, medicaments and biological substances
CPT/HCPCS: 30901; 30903; 36415; 85025; 85610; 85730; 99283-25; 99284-25; 99285

== ENCOUNTER 2017-05-08 17:30 | Emergency (ER) | payer MEDICARE, BC ==
[2017-05-08 17:46] VITALS: BP 138/61
[2017-05-08] MEDS ORDERED: Oxymetazoline 0.05% Nasal Spray 15 ML Bottle NAS ONE (18:31)
--- NOTE | 2017-05-08 19:13 | EDM.PDOC ---
ED HPI GENERAL MEDICAL PROBLEM - General Chief Complaint: ENT Problem Stated Complaint: NOSE BLEED Time Seen by Provider: 05/08/17 18:45 Source of Information: Reports: Patient History Limitations: Reports: No Limitations - History of Present Illness INITIAL COMMENTS - FREE TEXT/NARRATIVE: Patient is 77-year-old female presents ED complaining of epistaxis of the right nare on eliquis for A-Fib. States she's had 2 episodes of epistaxis today. The first resolved on its own accord. Second started approximately 1700 hrs. with no resolution. She has not been swallowing any blood. As a recent she's had multiple episodes of epistaxis. She's been seen on 2 separate occasions here in the ED with Rhino Rocket removed this past . With admission the bleeding is slowing down quite a bit. She denies any dizziness, nausea vomiting , recent trauma to her nose, excessive blowing of the nose, or any additional complaints. - Related Data Allergies Allergy/AdvReac Type Severity Reaction Status Date / Time Dairy Products Allergy Nausea and Verified 05/08/17 17:40 Vomiting lisinopril Allergy Cannot Verified 05/08/17 17:40 Remember Penicillins Allergy Hives Verified 05/08/17 17:40 Home Meds: Home Meds Ca Carbonate/Vitamin D3/Vit K [Calcium + D Soft Chewable Tab] 1,000 - 1,500 each PO DAILY 01/20/15 [History] Folic Acid 1 mg PO DAILY 01/20/15 [History] Hydroxychloroquine [Plaquenil] 200 mg PO DAILY 01/20/15 [History] LORazepam 0.5 mg PO BID PRN 01/20/15 [History] Losartan [Cozaar] 25 mg PO DAILY 01/20/15 [History] Metoprolol Succinate [Toprol XL] 25 mg PO BID 01/20/15 [History] Multivitamin [Multi-Vitamin Daily] 500 mg PO DAILY 01/20/15 [History] Omeprazole 20 mg PO BID 01/20/15 [History] Vitamin B Complex [B Complex] 1 each PO DAILY 01/20/15 [History] Apixaban [Eliquis] 5 mg PO BID 03/04/17 [History] Aspirin [Ecotrin] 81 mg PO DAILY 03/04/17 [History] Bismuth Subsalicylate [Pepto-Bismol] 15 ml PO DAILY PRN 03/04/17 [History] Lactobacillus Acidophilus [Probiotic] 1 cap PO DAILY 03/04/17 [History] Magnesiumzinc. 1 tab PO ASDIRECTED 03/04/17 [History] Nitroglycerin [Nitrostat] 0.4 mg SL ASDIRECTED PRN 03/04/17 [History] Simvastatin [Zocor] 20 mg PO BEDTIME 03/04/17 [History] Ubidecarenone [Coq-10] 200 mg PO DAILY 03/04/17 [History] Ferrous Sulfate 325 mg PO DAILY 04/22/17 [History] Methotrexate Sodium/PF [Methotrexate 50 mg/2 ml Vial] 15 mg SQ TU 04/22/17 [ History] Past Medical History HEENT History: Reports: Cataract, Impaired Vision Other HEENT History: wears glasses Cardiovascular History: Reports: Afib, Hypertension Respiratory History: Reports: Sleep Apnea Other Respiratory History: C-PAP. 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 OB/BYN History: OOVECTOMY Musculoskeletal History: Reports: RA Psychiatric History: Reports: Anxiety Hematologic History: Reports: Blood Transfusion(s) Oncologic (Cancer) History: Reports: Breast Other Dermatologic History: R MASECTOMY - Infectious Disease History Infectious Disease History: Reports: Chicken Pox - Past Surgical History HEENT Surgical History: Reports: Other (See Below) Cardiovascular Surgical History: Reports: Cardiac Ablation GI Surgical History: Reports: Appendectomy, Colonoscopy, EGD Female Surgical History: Reports: Hysterectomy Oncologic Surgical History: Reports: Mastectomy Social & Family History - Family History Family Medical History: Noncontributory - Tobacco Use Smoking Status *Q: Never Smoker Second Hand Smoke Exposure: No - Caffeine Use Caffeine Use: Reports: Tea - Recreational Drug Use Recreational Drug Use: No - Living Situation & Occupation Living situation: Reports: , with Spouse Occupation: Retired ED ROS ENT - Review of Systems Review Of Systems: ROS reveals no pertinent complaints other than HPI. ED EXAM, ENT - Physical Exam Exam: See Below Exam Limited By: No Limitations General Appearance: Alert, WD/WN, No Apparent Distress Ears: Hearing Grossly Normal Nose: Other (Dried blood to the right nare with no active bleeding present. On examination large clot present. Afrin 2 sprays to each nare administered with blood clot coughed up. ) Mouth/Throat: Normal Inspection, Normal Oropharynx Head: Atraumatic, Normocephalic Neck: Normal Inspection, Supple Respiratory/Chest: No Respiratory Distress, Lungs Clear, Normal Breath Sounds, No Accessory Muscle Use Cardiovascular: Normal Peripheral Pulses, Regular Rate, Rhythm Neurological: Alert, Oriented, CN II-XII Intact, Normal Cognition Psychiatric: Normal Affect, Normal Mood Skin: Warm, Dry, Intact, Normal Color Course - Vital Signs Last Recorded V/S: Last Vital Signs Temp 97.7 F 05/08/17 17:41 Pulse 78 05/08/17 17:41 Resp 18 05/08/17 17:41 BP 138/61 05/08/17 17:41 Pulse Ox 97 05/08/17 17:41 - Orders/Labs/Meds Meds: Medications Discontinued Medications Generic Name Dose Route Start Last Admin Trade Name Freq PRN Reason Stop Dose Admin Oxymetazoline HCl 1 ml 05/08/17 18:31 05/08/17 18:38 Afrin Original 0.05% Nasal [place] KAMALJIT 05/08/17 18:32 1 ml ONETIME ONE Administration - Re-Assessments/Exams Free Text/Narrative Re-Assessment/Exam: Ordered afrin. On examination patients bleeding has subsided. Large clot noted to the right nare. Two sprays of afrin to the right nare. Large clot noted expelled through the mouth. No bleeding noted to the right nare. Large amount of bacitracin to the right nare. Will allow patient to sit in the E.D. for 1/2 hour to see if continues to resolve. 05/08/17 19:33 Patient continues to have no bleeding. Will discharge patient home with instructions as documented. Departure - Departure Time of Disposition: 19:44 Disposition: Home, Self-Care 01 Condition: Good Clinical Impression: Epistaxis - Discharge Information Instructions: Nosebleed, [id number] Referrals: Coretta Sharma MD [Primary Care Provider] - Forms: ED Department Discharge Additional Instructions: Bleeding has resolved with examination. Large clot was present that was expelled with two sprays of Afrin to each nares. No obvious bleeding noted. As discussed will have you apply heavy coat of bacitracin or Vaseline to each nares twice daily during the cold months. Refrain from blowing or picking your nose excessively. If bleeding reoccurs blow out all clots and utilize Afrin 2 sprays to each nares with direct pressure. Return back to ED if bleeding does not resolve. Continue taking all your home medications as prescribed. May make an appointment with the ENT specialist for reevaluation as needed. Return to ED for any new or worsening symptoms.
== END 2017-05-08 19:59 | disposition home or self-care (01) ==
LOC: JD.ED 17:30
DX: R04.0 Epistaxis (principal); I10 Essential (primary) hypertension; G47.30 Sleep apnea, unspecified; K21.9 Gastro-esophageal reflux disease without esophagitis; Z79.82 Long term (current) use of aspirin; Z79.899 Other long term (current) drug therapy; Z88.0 Allergy status to penicillin; Z88.8 Allergy status to other drugs, medicaments and biological substances; Z91.011 Allergy to milk products
CPT/HCPCS: 99283; A9270; 99282

== ENCOUNTER 2017-08-06 18:22 | Emergency (ER) | payer MEDICARE, BC ==
[2017-08-06 18:33] VITALS: BP 168/89
[2017-08-06] MEDS ORDERED: Sodium Chloride 0.9% 10 ML Syringe FLUSH PRN (19:01)
[2017-08-06] MEDS ORDERED: Aspirin 81 MG Tab.Chew PO ONE (19:06)
[2017-08-06] MEDS ORDERED: Alum Hydrox/Mag Hydrox/Simeth 30 ML, Lidocaine 2% 15 ML PO ONE ×2 (19:06)
--- NOTE | 2017-08-06 19:07 | EDM.PDOC ---
ED HPI GENERAL MEDICAL PROBLEM - General Chief Complaint: Cardiovascular Problem Stated Complaint: BURNING IN CHEST Time Seen by Provider: 08/06/17 19:04 Source of Information: Reports: Patient History Limitations: Reports: No Limitations - History of Present Illness INITIAL COMMENTS - FREE TEXT/NARRATIVE: Patient is a 77-year-old female who presents to the ED with concerns of being in atrial fibrillation. Patient states she has a history of episodic A. fib and thus is on Eliquis 5 mg twice a day. She states this morning she awoke with palpitations at approximately 6:00. Palpitations persisted throughout the morning. She did take her metoprolol at a double dose earlier this morning. This afternoon while in town she developed this burning sensation to the left aspect of the lower sternal border with palpitations that resolved with admission to the ED. She did feel weak at that time. There is no radiation of pain to her neck, arms, or back. There was no nausea/ vomiting or diaphoresis. She did not feel that she was going to pass out or experience any dizziness. There is no belly pain or complaints of acid reflux. Again with admission to the ED all her symptoms have resolved. She continues to take all her home medications as prescribed. She does have a history of rheumatoid arthritis and takes methotrexate and also Plaquenil. She also has a history of GERD and takes Prilosec. She has not taken nitroglycerin. - Related Data Allergies Allergy/AdvReac Type Severity Reaction Status Date / Time Dairy Products Allergy Nausea and Verified 08/06/17 18:33 Vomiting lisinopril Allergy Cannot Verified 08/06/17 18:33 Remember Penicillins Allergy Hives Verified 08/06/17 18:33 Home Meds: Home Meds Folic Acid 1 mg PO DAILY 01/20/15 [History] Hydroxychloroquine [Plaquenil] 200 mg PO DAILY 01/20/15 [History] LORazepam 0.5 mg PO BID PRN 01/20/15 [History] Losartan [Cozaar] 25 mg PO DAILY 01/20/15 [History] Metoprolol Succinate [Toprol XL] 25 mg PO BID 01/20/15 [History] Omeprazole 20 mg PO BID 01/20/15 [History] Simvastatin [Zocor] 20 mg PO BEDTIME 03/04/17 [History] Ferrous Sulfate 325 mg PO BID 04/22/17 [History] Methotrexate Sodium/PF [Methotrexate 50 mg/2 ml Vial] 15 mg SQ TU 04/22/17 [ History] Docusate Calcium [Surfak] 240 mg PO DAILY 08/06/17 [History] Past Medical History HEENT History: Reports: Cataract, Impaired Vision Other HEENT History: wears glasses Cardiovascular History: Reports: Afib, Hypertension Respiratory History: Reports: Sleep Apnea Other Respiratory History: C-PAP. 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 OB/BYN History: OOVECTOMY Musculoskeletal History: Reports: RA Psychiatric History: Reports: Anxiety Hematologic History: Reports: Blood Transfusion(s) Oncologic (Cancer) History: Reports: Breast Other Dermatologic History: R MASECTOMY - Infectious Disease History Infectious Disease History: Reports: Chicken Pox - Past Surgical History HEENT Surgical History: Reports: Other (See Below) Cardiovascular Surgical History: Reports: Cardiac Ablation GI Surgical History: Reports: Appendectomy, Colonoscopy, EGD Female Surgical History: Reports: Hysterectomy Oncologic Surgical History: Reports: Mastectomy Social & Family History - Family History Family Medical History: Noncontributory - Tobacco Use Smoking Status *Q: Never Smoker Second Hand Smoke Exposure: No - Caffeine Use Caffeine Use: Reports: None - Recreational Drug Use Recreational Drug Use: No - Living Situation & Occupation Living situation: Reports: , with Spouse Occupation: Retired ED ROS GENERAL - Review of Systems Review Of Systems: See Below (With admission to the ED.) Constitutional: Reports: No Symptoms HEENT: Reports: No Symptoms Respiratory: Reports: No Symptoms Cardiovascular: Reports: No Symptoms GI/Abdominal: Reports: No Symptoms Musculoskeletal: Reports: No Symptoms Skin: Reports: No Symptoms Neurological: Reports: No Symptoms ED EXAM, GENERAL - Physical Exam Exam: See Below Exam Limited By: No Limitations General Appearance: Alert, WD/WN, No Apparent Distress Ears: Hearing Grossly Normal Nose: Normal Inspection Throat/Mouth: Normal Voice, No Airway Compromise Neck: Normal Inspection, Supple, Non-Tender, Full Range of Motion Respiratory/Chest: No Respiratory Distress, Lungs Clear, Normal Breath Sounds, No Accessory Muscle Use, Chest Non-Tender Cardiovascular: Normal Peripheral Pulses, Regular Rate, Rhythm, Other (Few PACs noted with palpation of the radial pulses.) Peripheral Pulses: 3+: Radial (L), Radial (R), Posterior Tibial (L), Posterior Tibial (R) GI/Abdominal: Normal Bowel Sounds, Soft, Non-Tender, No Organomegaly, No Distention Back Exam: Normal Inspection. No: CVA Tenderness (L), CVA Tenderness (R) Extremities: Normal Inspection, Normal Range of Motion, Non-Tender, No Pedal Edema, Normal Capillary Refill Neurological: Alert, Oriented, CN II-XII Intact, Normal Cognition, No Motor/ Sensory Deficits Psychiatric: Normal Affect, Normal Mood Skin Exam: Warm, Dry, Intact, Normal Color Course - Vital Signs Last Recorded V/S: Last Vital Signs Temp 97.4 F 08/06/17 18:29 Pulse 98 08/06/17 18:29 Resp 16 08/06/17 18:29 BP 168/89 H 08/06/17 18:29 Pulse Ox 96 08/06/17 18:29 - Orders/Labs/Meds Orders: Active Orders 24 hr Category Date Time Status Cardiac Monitoring [RC] . DIRECTED Care 08/06/17 19:01 Active EKG 12 Lead [EKG Documentation Completion] [RC] STAT Care 08/06/17 18:51 Active Peripheral IV Care [RC] . DIRECTED Care 08/06/17 19:02 Active Peripheral IV Insertion Adult [OM.PC] Stat Oth 08/06/17 19:01 Ordered Labs: Laboratory Tests 08/06/17 08/06/17 08/06/17 Range/Units 19:20 19:20 19:20 WBC 7.63 (3.98-10.04) K/mm3 RBC 3.88 L (3.98-5.22) M/mm3 Hgb 10.9 L (11.2-15.7) gm/L Hct 33.9 L (34.1-44.9) % MCV 87.4 (79.4-94.8) fl MCH 28.1 (25.6-32.2) pg MCHC 32.2 (32.2-35.5) g/dl RDW Std Deviation 56.7 H (36.4-46.3) fL Plt Count 263 (182-369) K/mm3 MPV 9.8 (9.4-12.3) fl Neut % (Auto) 60.9 (34.0-71.1) % Lymph % (Auto) 17.8 L (19.3-51.7) % [place] % (Auto) 18.3 H (4.7-12.5) % Eos % (Auto) 2.0 (0.7-5.8) Baso % (Auto) 0.5 (0.1-1.2) % Neut # (Auto) 4.64 (1.56-6.13) K/mm3 Lymph # (Auto) 1.36 (1.18-3.74) K/mm3 [place] # (Auto) 1.40 H (0.24-0.36) K/mm3 Eos # (Auto) 0.15 (0.04-0.36) K/mm3 Baso # (Auto) 0.04 (0.01-0.08) K/mm3 Manual Slide Review Abnormal smear PT 11.1 (8.0-13.0) SECONDS INR 1.02 APTT 28 (22-36) SECONDS Sodium 138 (136-145) mEq/L Potassium 3.8 (3.5-5.1) mEq/L Chloride 105 (98-107) mEq/L Carbon Dioxide 24 (21-32) mEq/L Anion Gap 12.8 (5-15) BUN 19 H (7-18) mg/dL Creatinine 1.3 H (0.55-1.02) mg/dL Est Cr Clr Drug Dosing 37.14 mL/min Estimated GFR (MDRD) 40 (>60) mL/min BUN/Creatinine Ratio 14.6 (14-18) Glucose 130 H (83-115) mg/dL Calcium 10.9 H (8.5-10.1) mg/dL Magnesium 1.9 (1.8-2.4) mg/dl Total Bilirubin 0.4 (0.2-1.0) mg/dL AST 26 (15-37) U/L ALT 25 (14-59) U/L Alkaline Phosphatase 65 (46-116) U/L Troponin I 0.018 (0.00-0.056) ng/mL C-Reactive Protein < 0.2 (<1.0) mg/dL Total Protein 7.4 (6.4-8.2) g/dl Albumin 3.2 L (3.4-5.0) g/dl Globulin 4.2 gm/dL Albumin/Globulin Ratio 0.8 L (1-2) Lipase 197 (73-393) U/L TSH 3rd Generation (0.358-3.74) uIU/mL 08/06/17 08/06/17 Range/Units 19:20 22:26 WBC (3.98-10.04) K/mm3 RBC (3.98-5.22) M/mm3 Hgb (11.2-15.7) gm/L Hct (34.1-44.9) % MCV (79.4-94.8) fl MCH (25.6-32.2) pg MCHC (32.2-35.5) g/dl RDW Std Deviation (36.4-46.3) fL Plt Count (182-369) K/mm3 MPV (9.4-12.3) fl Neut % (Auto) (34.0-71.1) % Lymph % (Auto) (19.3-51.7) % [place] % (Auto) (4.7-12.5) % Eos % (Auto) (0.7-5.8) Baso % (Auto) (0.1-1.2) % Neut # (Auto) (1.56-6.13) K/mm3 Lymph # (Auto) (1.18-3.74) K/mm3 [place] # (Auto) (0.24-0.36) K/mm3 Eos # (Auto) (0.04-0.36) K/mm3 Baso # (Auto) (0.01-0.08) K/mm3 Manual Slide Review PT (8.0-13.0) SECONDS INR APTT (22-36) SECONDS Sodium (136-145) mEq/L Potassium (3.5-5.1) mEq/L Chloride (98-107) mEq/L Carbon Dioxide (21-32) mEq/L Anion Gap (5-15) BUN (7-18) mg/dL Creatinine (0.55-1.02) mg/dL Est Cr Clr Drug Dosing mL/min Estimated GFR (MDRD) (>60) mL/min BUN/Creatinine Ratio (14-18) Glucose (83-115) mg/dL Calcium (8.5-10.1) mg/dL Magnesium (1.8-2.4) mg/dl Total Bilirubin (0.2-1.0) mg/dL AST (15-37) U/L ALT (14-59) U/L Alkaline Phosphatase (46-116) U/L Troponin I 0.018 (0.00-0.056) ng/mL C-Reactive Protein (<1.0) mg/dL Total Protein (6.4-8.2) g/dl Albumin (3.4-5.0) g/dl Globulin gm/dL Albumin/Globulin Ratio (1-2) Lipase (73-393) U/L TSH 3rd Generation 4.143 H (0.358-3.74) uIU/mL Meds: Medications Discontinued Medications Generic Name Dose Route Start Last Admin Trade Name Freq PRN Reason Stop Dose Admin Aspirin 324 mg 08/06/17 19:06 08/06/17 19:14 Aspirin PO 08/06/17 19:07 324 mg ONETIME ONE Administration Al Hydroxide/Mg Hydroxide 30 0 ml 08/06/17 19:06 08/06/17 19:15 ml/ Lidocaine HCl 15 ml PO 08/06/17 19:07 45 ml ONETIME ONE Administration Sodium Chloride 10 ml 08/06/17 19:01 08/06/17 19:15 Saline Flush FLUSH 10 ml ASDIRECTED PRN Administration Keep Vein Open - Re-Assessments/Exams Free Text/Narrative Re-Assessment/Exam: IV established. Initial labs and studies will include CBC, chem 14, coag studies , lipase, magnesium, troponin, chest x-ray one view, and also EKG. I have also ordered GI cocktail plus aspirin 324 mg by mouth. EKG revealed a sinus rhythm with a rate of 73 with a few PACs. No acute ST changes noted. Labs reviewed: Chemistry panel revealed creatinine 1.3. CRP less than 2. Troponin within normal limits is 0.018. Lipase 197. CBC shows hemoglobin 10.9 and platelet count of 263. She is on iron supplementation. Chest x-ray did not reveal any acute abnormalities. This was reviewed with Dr. Sharif. Final interpretation is pending. Due to patient's cardiac history we'll go ahead and obtain a second troponin 3 hours from previous blood work. In addition I discussed with the patient in having a 48 hour Holter monitor placed to evaluate if the palpitations she is experiencing is actually A. fib. She says symptoms are episodic. I've offered also to place the patient on event monitor for one month to further delineate what rhythm she is experiencing. Patient will think about it. Currently on telemetry patients in a sinus rhythm with a few PACs. She has no complaints at this time. TSH: 4.143 2308 2nd Troponin: Unchanged. Patient remains asymptomatic. Will discharge patient home with instructions as documented. Patient has opted not to have a Holter monitor or event monitor. Departure - Departure Time of Disposition: 23:09 Disposition: Home, Self-Care 01 Condition: Good Clinical Impression: Palpitations Instructions: Atrial Fibrillation, [id number] Referrals: Coretta Sharma MD [Primary Care Provider] - Forms: ED Department Discharge Additional Instructions: As discussed EKG showed a sinus rhythm with intermittent extra atrial beats. You were not in atrial fibrillation with admission to the ED. EKG did not reveal any concerning findings. Will have you continue taking all your home medications as prescribed. If you experience additional episodes of palpitations with heart rate in the 120s 130s that's irregular irregular with normotensive blood pressure you may take double your metoprolol dose as you did this morning to decrease your heart rate. If you develop any shortness of breath , chest pain, dizziness, pre/syncopal episodes please return back to the ED for further evaluation. Follow-up with your primary care provider for further evaluation in one week. - My Orders Last 24 Hours: My Active Orders 08/06/17 18:51 EKG 12 Lead [EKG Documentation Completion] [RC] STAT 08/06/17 19:01 Cardiac Monitoring [RC] . DIRECTED Peripheral IV Insertion Adult [OM.PC] Stat 08/06/17 19:02 Peripheral IV Care [RC] . DIRECTED - Assessment/Plan Last 24 Hours: My Active Orders 08/06/17 18:51 EKG 12 Lead [EKG Documentation Completion] [RC] STAT 08/06/17 19:01 Cardiac Monitoring [RC] . DIRECTED Peripheral IV Insertion Adult [OM.PC] Stat 08/06/17 19:02 Peripheral IV Care [RC] . DIRECTED
--- NOTE | 2017-08-07 07:42 | CR ---
Chest: Portable view of the chest was obtained. Comparison: Prior chest x-ray of 03/07/17. Heart size is slightly prominent. Tortuous thoracic aorta is seen. Lung markings are mildly increased which appear stable. No acute parenchymal densities are seen within either lung. Scoliosis is noted within the spine. Impression: 1. Findings as noted above. Nothing acute is identified. Diagnostic code #2
== END 2017-08-06 23:27 | disposition home or self-care (01) ==
LOC: JD.ED 18:22
DX: R00.2 Palpitations (principal); I10 Essential (primary) hypertension; K21.9 Gastro-esophageal reflux disease without esophagitis; Z91.011 Allergy to milk products; Z79.899 Other long term (current) drug therapy; Z88.0 Allergy status to penicillin; Z88.8 Allergy status to other drugs, medicaments and biological substances
CPT/HCPCS: 36415; 71045; 80053; 83690; 83735; 84443; 84484; 85025; 85610; 85730; 86140; 93005; 99285; A9270; J7050

== ENCOUNTER 2018-08-28 19:06 | Emergency (ER) | payer MEDICARE, BC ==
[2018-08-28] MEDS ORDERED: Metoprolol Tartrate 5 MG in Sodium Chloride 0.9% 50 ML IV ONE (20:15)
[2018-08-28] MEDS ORDERED: Sodium Chloride 0.9% 1,000 ML IV SCH (20:15)
[2018-08-28] MEDS ORDERED: Sodium Chloride 0.9% 10 ML Syringe FLUSH PRN (20:16)
[2018-08-28] MEDS ORDERED: Metoprolol Tartrate 5 MG/5 ML SDV IVPUSH ONE (20:30)
[2018-08-28 20:35] VITALS: BP 124/80
--- NOTE | 2018-08-28 21:44 | EDM.PDOC ---
ED HPI GENERAL MEDICAL PROBLEM - General Chief Complaint: Cardiovascular Problem Stated Complaint: HEART RATE Time Seen by Provider: 08/28/18 19:44 Source of Information: Reports: Patient, RN Notes Reviewed - History of Present Illness INITIAL COMMENTS - FREE TEXT/NARRATIVE: 78-year-old lady had parathyroid surgery yesterday at [facility] by Dr. Hagan. Her states she had "one nodule removed". Days she is noticing palpitations, especially this evening. No chest pain, nausea vomiting or diaphoresis. No shortness of breath or difficulty breathing. She does have history of chronic atrial fib, was in atrophia before the surgery and continues in atrial fib at this time. She has been on Eliquis, that was stopped 2 days prior to her surgery. She was told she can go ahead and resume that on MondayAugust 29 which is tomorrow. - Related Data Allergies Allergy/AdvReac Type Severity Reaction Status Date / Time Dairy Products Allergy Nausea and Verified 08/06/17 18:33 Vomiting lisinopril Allergy Cannot Verified 08/06/17 18:33 Remember Penicillins Allergy Hives Verified 08/06/17 18:33 Home Meds: Home Meds Folic Acid 1 mg PO DAILY 01/20/15 [History] Hydroxychloroquine [Plaquenil] 200 mg PO DAILY 01/20/15 [History] LORazepam 0.5 mg PO BID PRN 01/20/15 [History] Losartan [Cozaar] 25 mg PO DAILY 01/20/15 [History] Metoprolol Succinate [Toprol XL] 25 mg PO BID 01/20/15 [History] Omeprazole 20 mg PO BID 01/20/15 [History] Ferrous Sulfate 325 mg PO BID 04/22/17 [History] Methotrexate Sodium/PF [Methotrexate 50 mg/2 ml Vial] 15 mg SQ TU 04/22/17 [ History] Docusate Calcium [Surfak] 240 mg PO DAILY 08/06/17 [History] Apixaban [Eliquis] 5 mg PO BID 08/28/18 [History] Past Medical History HEENT History: Reports: Cataract, Impaired Vision Other HEENT History: wears glasses Cardiovascular History: Reports: Afib, Hypertension Respiratory History: Reports: Sleep Apnea Other Respiratory History: C-PAP. 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 Musculoskeletal History: Reports: RA Psychiatric History: Reports: Anxiety Hematologic History: Reports: Blood Transfusion(s) Oncologic (Cancer) History: Reports: Breast Other Dermatologic History: R MASECTOMY - Infectious Disease History Infectious Disease History: Reports: Chicken Pox - Past Surgical History HEENT Surgical History: Reports: Other (See Below) Cardiovascular Surgical History: Reports: Cardiac Ablation GI Surgical History: Reports: Appendectomy, Colonoscopy, EGD Female Surgical History: Reports: Hysterectomy Oncologic Surgical History: Reports: Mastectomy Social & Family History - Family History Family Medical History: Noncontributory - Tobacco Use Smoking Status *Q: Never Smoker - Caffeine Use Caffeine Use: Reports: None - Recreational Drug Use Recreational Drug Use: No - Living Situation & Occupation Living situation: Reports: , with Spouse Occupation: Retired ED ROS GENERAL - Review of Systems Review Of Systems: See Below Constitutional: Denies: Fever, Chills, Diaphoresis HEENT: Reports: Throat Swelling (There is mild swelling area of surgery anterior neck). Denies: Throat Pain Respiratory: Denies: Shortness of Breath Cardiovascular: Reports: Palpitations. Denies: Chest Pain GI/Abdominal: Denies: Abdominal Pain, Nausea, Vomiting Musculoskeletal: Denies: Leg Pain Skin: Reports: Erythema (Mild erythema area of surgery) Neurological: Denies: Dizziness, Numbness, Tingling, Trouble Speaking, Difficulty Walking, Weakness ED EXAM, GENERAL - Physical Exam Exam: See Below General Appearance: Alert, No Apparent Distress Eye Exam: Bilateral Eye: PERRL Throat/Mouth: Normal Inspection, Normal Oropharynx Head: Atraumatic. No: Facial Swelling Neck: Supple, Other (Small surgical incision anterior neck was very mild localized swelling) Respiratory/Chest: No Respiratory Distress, Lungs Clear, Normal Breath Sounds Cardiovascular: Tachycardia GI/Abdominal: Soft, Non-Tender Extremities: Normal Inspection, Normal Range of Motion. No: Pedal Edema, Leg Pain Neurological: Alert, Oriented, No Motor/Sensory Deficits Skin Exam: Warm, Dry, Normal Color Course - Vital Signs Last Recorded V/S: Last Vital Signs Temp 98 F 08/28/18 19:42 Pulse 117 H 08/28/18 20:34 Resp 18 08/28/18 19:42 BP 124/80 08/28/18 20:34 Pulse Ox 99 08/28/18 19:42 - Orders/Labs/Meds Orders: Active Orders 24 hr Category Date Time Status Peripheral IV Care [RC] . DIRECTED Care 08/28/18 20:16 Active Peripheral IV Insertion Adult [OM.PC] Stat Oth 08/28/18 20:15 Ordered Labs: Laboratory Tests 08/28/18 08/28/18 Range/Units 20:30 20:30 WBC 9.38 (3.98-10.04) K/mm3 RBC 3.73 L (3.98-5.22) M/mm3 Hgb 11.3 (11.2-15.7) gm/L Hct 34.4 (34.1-44.9) % MCV 92.2 (79.4-94.8) fl MCH 30.3 (25.6-32.2) pg MCHC 32.8 (32.2-35.5) g/dl RDW Std Deviation 48.5 H (36.4-46.3) fL Plt Count 204 (182-369) K/mm3 MPV 10.5 (9.4-12.3) fl Neut % (Auto) 64.4 (34.0-71.1) % Lymph % (Auto) 7.6 L (19.3-51.7) % [place] % (Auto) 26.9 H (4.7-12.5) % Eos % (Auto) 0.6 L (0.7-5.8) Baso % (Auto) 0.2 (0.1-1.2) % Neut # (Auto) 6.04 (1.56-6.13) K/mm3 Lymph # (Auto) 0.71 L (1.18-3.74) K/mm3 [place] # (Auto) 2.52 H (0.24-0.36) K/mm3 Eos # (Auto) 0.06 (0.04-0.36) K/mm3 Baso # (Auto) 0.02 (0.01-0.08) K/mm3 Manual Slide Review Abnormal smear Sodium 134 L (136-145) mEq/L Potassium 3.9 (3.5-5.1) mEq/L Chloride 99 (98-107) mEq/L Carbon Dioxide 25 (21-32) mEq/L Anion Gap 13.9 (5-15) BUN 22 H (7-18) mg/dL Creatinine 1.4 H (0.55-1.02) mg/dL Est Cr Clr Drug Dosing 32.73 mL/min Estimated GFR (MDRD) 36 (>60) mL/min BUN/Creatinine Ratio 15.7 (14-18) Glucose 128 H (83-115) mg/dL Calcium 9.2 (8.5-10.1) mg/dL Total Bilirubin 0.5 (0.2-1.0) mg/dL AST 26 (15-37) U/L ALT 25 (14-59) U/L Alkaline Phosphatase 59 (46-116) U/L Total Protein 6.7 (6.4-8.2) g/dl Albumin 3.0 L (3.4-5.0) g/dl Globulin 3.7 gm/dL Albumin/Globulin Ratio 0.8 L (1-2) Free T4 1.70 H (0.76-1.46) ng/dL TSH 3rd Generation 0.820 (0.358-3.74) uIU/mL Meds: Medications Discontinued Medications Generic Name Dose Route Start Last Admin Trade Name Freq PRN Reason Stop Dose Admin Metoprolol Tartrate 5 mg/ 55 mls @ 100 mls/hr 08/28/18 20:15 08/28/18 20:31 Sodium Chloride IV 08/28/18 20:47 Not Given ONETIME ONE Sodium Chloride 1,000 mls @ 150 mls/hr 08/28/18 20:15 08/28/18 20:34 Normal Saline IV 150 mls/hr ASDIRECTED RACH Administration Metoprolol Tartrate 5 mg 08/28/18 20:30 08/28/18 20:34 Lopressor IVPUSH 08/28/18 20:31 5 mg ONETIME ONE Administration Sodium Chloride 10 ml 08/28/18 20:16 08/28/18 20:35 Saline Flush FLUSH 10 ml ASDIRECTED PRN Administration Keep Vein Open - Re-Assessments/Exams Free Text/Narrative Re-Assessment/Exam: 08/29/18 04:57 We did give pressor 5 mg IV and that did help her heart rate slow from the low 120s down to around 100-110. She has been on metoprolol 25 mg twice a day. I' ve suggested she go up to 50 mg twice a day as long as she does tolerate that increased dose each from a blood pressure standpoint. Discharge instructions as documented. Departure - Departure Time of Disposition: 21:42 Disposition: Home, Self-Care 01 Condition: Fair Clinical Impression: Palpitations, Sinus tachycardia Instructions: Sinus Tachycardia, Palpitations, [id number] Referrals: Coretta Sharma MD [Primary Care Provider] - Forms: ED Department Discharge Additional Instructions: Continue to drink plenty of water, increase her metoprolol to 50 mg or 2 of your 25 mg tablets twice daily for now. Your blood pressure and pulse about 3 times daily, keep a record. Try see Dr Granger at the clinic in 2-3 days. Call tomorrow morning for appointment, you may also talk to your Cardiology providers or providers nurse in [place] as needed. Return to ED as needed if symptoms worsening in any way. - My Orders Last 24 Hours: My Active Orders 08/28/18 20:15 Peripheral IV Insertion Adult [OM.PC] Stat 08/28/18 20:16 Peripheral IV Care [RC] . DIRECTED - Assessment/Plan Last 24 Hours: My Active Orders 08/28/18 20:15 Peripheral IV Insertion Adult [OM.PC] Stat 08/28/18 20:16 Peripheral IV Care [RC] . DIRECTED
== END 2018-08-28 21:53 | disposition home or self-care (01) ==
LOC: JD.ED 19:06
DX: R00.2 Palpitations (principal); R00.0 Tachycardia, unspecified; I10 Essential (primary) hypertension; I48.91 Unspecified atrial fibrillation; K21.9 Gastro-esophageal reflux disease without esophagitis; Z79.899 Other long term (current) drug therapy; F41.9 Anxiety disorder, unspecified; Z91.011 Allergy to milk products; Z88.8 Allergy status to other drugs, medicaments and biological substances; Z88.0 Allergy status to penicillin
CPT/HCPCS: 36415; 80053; 84439; 84443; 85025; 96361; 96374; 99284; J3490; J7040

== ENCOUNTER 2021-09-26 14:41 | Emergency (ER) | payer MEDICARE, BC ==
[2021-09-26 14:59] VITALS: BP 144/92; PULSE 131
[2021-09-26] MEDS ORDERED: Sodium Chloride 0.9% 10 ML Syringe FLUSH PRN (14:59)
[2021-09-26] MEDS ORDERED: Diltiazem 50 MG/10 ML SDV IVPUSH ONE (14:59)
[2021-09-26] MEDS ORDERED: Furosemide 40 MG/4 ML VIAL IVPUSH ONE (15:57)
== END 2021-09-26 17:38 | disposition home or self-care (01) ==
LOC: JD.ED 14:41 → SUPCPDRO 14:41 → JD.ED 17:38
DX: I48.91 Unspecified atrial fibrillation (principal); I11.0 Hypertensive heart disease with heart failure; I50.9 Heart failure, unspecified; K21.9 Gastro-esophageal reflux disease without esophagitis; Z91.011 Allergy to milk products; Z88.0 Allergy status to penicillin; Z88.8 Allergy status to other drugs, medicaments and biological substances; Z79.01 Long term (current) use of anticoagulants; Z79.899 Other long term (current) drug therapy
CPT/HCPCS: 36415; 71045; 80053; 81001; 83735; 83880; 84443; 84484; 85025; 87086; 93005; 96374; 96375; 99285; J1940; J3490; 93010

== ENCOUNTER 2022-03-11 12:16 | Emergency (ER) | payer MEDICARE, BC ==
[2022-03-11] MEDS ORDERED: Albuterol/Ipratropium 3.0-0.5 MG/3 ML Neb Soln NEB ONE (13:09)
[2022-03-11] MEDS ORDERED: cefTRIAXone 1 GM in Sodium Chloride 0.9% 100 ML IV ONE (13:10)
[2022-03-11 13:16] VITALS: BP 83/61; PULSE 66
[2022-03-11] MEDS: Sodium Chloride 0.9% 10 ML Syringe FLUSH PRN ×2 (14:20→16:32)
[2022-03-11] MEDS ORDERED: Azithromycin 500 MG in Sodium Chloride 0.9% 250 ML IV ONE (15:55)
== END 2022-03-11 18:25 ==
LOC: JD.ED 12:16
DX: J18.9 Pneumonia, unspecified organism (principal); R09.02 Hypoxemia; I48.91 Unspecified atrial fibrillation; I10 Essential (primary) hypertension; N28.9 Disorder of kidney and ureter, unspecified; R91.1 Solitary pulmonary nodule; K21.9 Gastro-esophageal reflux disease without esophagitis; Z91.011 Allergy to milk products; Z88.0 Allergy status to penicillin; Z88.8 Allergy status to other drugs, medicaments and biological substances; Z79.899 Other long term (current) drug therapy; Z79.01 Long term (current) use of anticoagulants; Z20.822 Contact with and (suspected) exposure to COVID-19
CPT/HCPCS: 36415; 83605; 86140; 87040; 94640; 96365; 96367; 99285; J0456; J0696; J3490; J7050; U0002; J7620-GY

== ENCOUNTER 2022-09-15 09:46 | Emergency (ER) | payer MEDICARE, BC ==
[2022-09-15 10:49] LABS: CORONAVIRUS COVID-19 NAA NEGATIVE (NEGATIVE)
[2022-09-15 17:37] VITALS: BP 112/85; PULSE 85
== END 2022-09-15 14:25 | disposition home or self-care (01) ==
LOC: JD.ED 09:46
DX: J40 Bronchitis, not specified as acute or chronic (principal); I48.91 Unspecified atrial fibrillation; I10 Essential (primary) hypertension; K21.9 Gastro-esophageal reflux disease without esophagitis; Z88.0 Allergy status to penicillin; Z91.011 Allergy to milk products; Z88.8 Allergy status to other drugs, medicaments and biological substances; Z79.01 Long term (current) use of anticoagulants; Z79.899 Other long term (current) drug therapy; Z20.822 Contact with and (suspected) exposure to COVID-19
CPT/HCPCS: 0241U; 36415; 71045; 80053; 85025; 86140; 87040; 99285